=== PATIENT | male | born 2000 | race Hispanic/Latino ===

== ENCOUNTER 2025-03-03 17:23 | Emergency (ER) | payer BC, SELFPAY ==
[2025-03-03 17:25] VITALS: BP 136/94
--- NOTE | 2025-03-03 18:14 | ED.GENMED ---
History of Present Illness
General
Chief Complaint: Eye Problems
Source: patient
Exam Limitations: none
Time Seen by Provider: 03/03/25 17:41
History of Present Illness
History of Present Illness:
Patient to ED with complaint of foreign body sensation to his left eye. Symptoms started this AM. Wears contact lenses. States he removed contact lens but sensation continued. No known history of trauma
Past History
Past History
ED Past Medical History: None
Review of Systems
Review of Systems
Allergies reviewed?: Yes
All Other Systems: ROS reviewed and negative except as documented in HPI and ROS
Constitutional: Reports no symptoms
EENT: Reports tearing and other (FB sensation to left eye)
Musculoskeletal: Reports no symptoms
Skin: Reports no symptoms
Neurological: Reports no symptoms
Psychiatric: Reports no symptoms
Phy Exam
General Physical Exam
General Presentation: well appearing and mild distress
General age: appears stated age
General Skin: warm and dry
General Habitus: normal
General Mental: alert
Eye Exam
Eye Exam: PERRL, EOMI, conjunctiva normal, globe normal and other (Lid everted, small black shahram noted under left upper lid, removed iwth qtip)
Eye Exam General: PERRL: bilateral
Conjunctival Changes: left: watery discharge
Cornea Exam: abrasion: Left (superficial at 12 oclock)
Type of Exam: slit lamp, simple and fluorescein
Musculoskeletal Exam
Musculoskeletal Exam: full ROM
Skin Exam
Skin Exam: normal color, warm/dry and no rash
Psychiatric Exam
Psychiatric Exam: normal mood/affect
Course
Orders/Labs/Results
Orders:
Orders
03/03/25 18:11
Ofloxacin [Ocuflox] See Dose Instructions OPHTH NOW STA
Vital Signs
Initial and Last Documented VS:
Initial Vital Signs
Temp Pulse Resp BP Pulse Ox
98.4 F 60 20 136/94 99
03/03/25 17:25 03/03/25 17:25 03/03/25 17:25 03/03/25 17:25 03/03/25 17:25
Last Documented Vital Signs
Temp Pulse Resp BP Pulse Ox
98.4 F 60 20 136/94 99
03/03/25 17:25 03/03/25 17:25 03/03/25 17:25 03/03/25 17:25 03/03/25 17:25
*Critical Care Note
Total Time (30-74mins, 75-104mins- exclusive of procedures): Not Applicable
ED Attending Note
-
Portions of this chart may have been created with voice recognition software.� Occasional wrong word or��sound alike� substitutions may have occurred due to the inherent limitations of voice recognition software.
Discharge Plan
Departure
Patient Disposition: Home (Routine Discharge)
Date of Disposition: 03/03/25
Time of Disposition: 18:11
Patient with high blood pressure during this ER visit?: No
Condition: Good
Covid-19: Not Applicable
Discharge Problem:
Eye foreign body, Abrasion of cornea
Instructions: Corneal Abrasion (DC), How to Use Eye Drops, Foreign Body in Eye (DC)
Prescriptions:
New
ofloxacin [Ocuflox] 0.3 % drops
1 drp ophthalmic (eye) QID Qty: 5 0RF
Referrals:
UNKNOWN - PT DOES,NOT KNOW [Family Provider] -
Activity Restrictions/Additional Instructions:
Follow up with your eye doctor on Wednesday. Do not wear contact lens until cleared to return by your eye doctor
Interventions
Interventions:
*Risk Screen - Suicide Last Done: 03/03/25 17:25
*General Assessment Last Done: 03/03/25 17:25
*Neglect/Abuse Screening Last Done: 03/03/25 17:25
*ED- Fall Risk Assessment Last Done: 03/03/25 17:35
*ED COVID-19 Vaccine History Last Done: 03/03/25 17:35
Discharge Date and Time
Print Language: ROMANIAN
[2025-03-03] MEDS: OCUFLOX 1 DROP OPHTH (18:19)
== END 2025-03-03 19:08 | disposition home or self-care (01) ==
LOC: EMR 17:23
PROVIDERS: EMERGENCY PHYSICIAN Emergency Medicine
DX: T15.02XA Foreign body in cornea, left eye, initial encounter (principal); X58.XXXA Exposure to other specified factors, initial encounter
CPT/HCPCS: 99283

== ENCOUNTER 2025-05-23 19:51 | Emergency (ER) | payer BC, SELFPAY ==
[2025-05-23 20:02] VITALS: BP 164/84
[2025-05-23] MEDS: MOTRIN 400 MG PO (21:45)
--- NOTE | 2025-05-23 22:48 | ED.GENMED ---
History of Present Illness
General
Chief Complaint: Musculo-Skeletal Complaint
Time Seen by Provider: 05/23/25 22:32
History of Present Illness
History of Present Illness:
25-year-old male presents the emergency department for evaluation of right thumb pain after being struck by a baseball during a game. He is able to move the thumb with pain.
Past History
Past History
ED Past Medical History: None
Review of Systems
Review of Systems
Allergies reviewed?: Yes
All Other Systems: ROS reviewed and negative except as documented in HPI and ROS
Phy Exam
Physical Exam
Physical Exam:
GEN: Well appearing, NAD, WDWN
HEENT: Oral mucosa moist, no scleral icterus
Cardiac: Regular rate
Lung: No respiratory distress, no tachypnea
MSK: Diffuse swelling and ecchymosis to the right thumb pad with minimal subungual hematoma, normal range of motion at the IP joint
Skin: Good color, no pallor or jaundice, no rashes
Neuro: AO x3, moves all extremities freely
Psych: Calm, cooperative
Course
Orders/Labs/Results
Orders:
Orders
05/23/25 20:04
Thumb/Finger 2 View Rt [CR Finger(s)/thumb Min 2 Vw Rt] Urgent
Comment:
Reason For Exam: pain/swelling/injury
Indicate Which Finger:: Thumb
05/23/25 21:42
Ibuprofen [Motrin] 400 mg .ROUTE .STK-MED ONE
05/23/25 21:45
Ibuprofen [Motrin] 400 mg PO NOW STA
Vital Signs
Initial and Last Documented VS:
Initial Vital Signs
Temp Pulse Resp BP Pulse Ox
98.5 F 71 18 164/84 100
05/23/25 20:02 05/23/25 20:02 05/23/25 20:02 05/23/25 20:02 05/23/25 20:02
Last Documented Vital Signs
Temp Pulse Resp BP Pulse Ox
98.5 F 71 18 164/84 100
05/23/25 20:02 05/23/25 20:02 05/23/25 20:02 05/23/25 20:02 05/23/25 22:49
Procedures
Splinting/Sling Placement
Right thumb:
Procedure completed by: Ferdinand Lipscomb PA-C
Pre-splint extermity exam: neurovascular intact
Type of splint: thumb spica
Splint material: fiberglass
Normal distal neurovascular exam?: Yes
MDM/Problems Addressed
MDM/Problems Addressed:
X-rays independently interpreted by me show a transverse fracture of the right thumb distal phalanx, thumb spica applied by myself, will refer to orthopedics as an outpatient
*Pulse Oximetry
SaO2: 100
Oxygen Mode of Delivery: Room air
Patient hypoxic: no
*Critical Care Note
Total Time (30-74mins, 75-104mins- exclusive of procedures): Not Applicable
ED Attending Note
-
Portions of this chart may have been created with voice recognition software.� Occasional wrong word or��sound alike� substitutions may have occurred due to the inherent limitations of voice recognition software.
Discharge Plan
Departure
Patient Disposition: Home (Routine Discharge)
Date of Disposition: 05/23/25
Time of Disposition: 22:48
Patient with high blood pressure during this ER visit?: No
Discharge Problem:
Closed fracture of distal phalanx of right thumb
Instructions: Finger Fracture ED
Prescriptions:
No Action
ofloxacin [Ocuflox] 0.3 % drops
1 drp ophthalmic (eye) QID Qty: 5 0RF
Referrals:
Govind Patrick MD [Active, Orthopedics]
UNKNOWN - PT DOES,NOT KNOW [Family Provider]
Interventions
Interventions:
*Risk Screen - Suicide Last Done: 05/23/25 20:02
*Neglect/Abuse Screening Last Done: 05/23/25 20:02
*Nursing Disposition Last Done: 05/23/25 22:56
Discharge Date and Time
Discharge Date/Time: 05/23/25 22:56
Print Language: HEBREW
== END 2025-05-23 22:56 | disposition home or self-care (01) ==
LOC: EMR 19:51
PROVIDERS: EMERGENCY PHYSICIAN Emergency Medicine
DX: S62.521A Displaced fracture of distal phalanx of right thumb, initial encounter for closed fracture (principal); W21.03XA Struck by baseball, initial encounter
CPT/HCPCS: 99283; 29125; 73140